=== PATIENT | female | born 1955 | race Caucasian/White ===

== ENCOUNTER 2024-03-14 04:50 | Emergency (ER) | payer BC, MEDICARE ==
[~2024-03-14] VITALS: Ht 185.4 cm; Wt 80.5 kg
[~2024-03-14 04:50] MED LIST: ALBU17AE26 IH; IBUP200C5 PO; LISI20TA28 PO; PARO20TA6 PO; SIMV10TA98 PO
[2024-03-14] MEDS: acetaminophen 325mg tablet PO ONE (05:53)
[2024-03-14 06:01] LABS: BASOPHILS # (AUTO) 0.1 X10'3 (0-0.2); BASOPHILS % (AUTO) 1.2 % (0-1); EOSINOPHILS % (AUTO) 0.9 % (0-6); HEMATOCRIT 43.9 % (35.0-45.0); HEMOGLOBIN 14.7 g/dl (12.0-16.0); LYMPHOCYTES # (AUTO) 0.6 X10'3 (1.1-4.8); LYMPHOCYTES % (AUTO) 11.4 % (21-51); MEAN CORPUSCULAR HEMOGLOBIN 30.5 PG (27.0-31.0); MEAN CORPUSCULAR HGB CONC 33.6 g/dL (33.0-36.5); MEAN CORPUSCULAR VOLUME 90.8 FL (78-98); MEAN PLATELET VOLUME 9.5 FL (7.4-10.4); MONOCYTES # (AUTO) 0.5 X10'3 (0-0.9); MONOCYTES % (AUTO) 9.6 % (2-12); NEUTROPHILS # (AUTO) 3.9 X10'3 (1.8-7.7); NEUTROPHILS % (AUTO) 76.9 % (42-75); PLATELET COUNT 176 X10'3 (140-440); RED BLOOD COUNT 4.84 X10'6 (4.20-5.60); RED CELL DISTRIBUTION WIDTH 13.8 % (11.5-14.5); WHITE BLOOD COUNT 5.1 X10'3 (4.5-11.0)
[2024-03-14 06:14] LABS: ALANINE AMINOTRANSFERASE 20 U/L (12-78); ALBUMIN 3.9 G/DL (3.4-5.0); ALBUMIN/GLOBULIN RATIO 1.2 (1.1-1.5); ALKALINE PHOSPHATASE 83 IU/L (46-116); ANION GAP 9 (8-16); ASPARTATE AMINO TRANSFERASE 44 U/L (10-37); BILIRUBIN,TOTAL 1.5 MG/DL (0.1-1.0); BLOOD UREA NITROGEN 20 MG/DL (7-18); BUN/CREATININE RATIO 28.6 (10.0-20.0); CALCIUM 9.1 MG/DL (8.5-10.1); CHLORIDE 104 MMOL/L (99-107); GLUCOSE 92 MG/DL (70-104); POTASSIUM 3.5 MMOL/L (3.5-5.1); SODIUM 141 MMOL/L (135-145); TOTAL CARBON DIOXIDE 27.9 MMOL/L (24-32); TOTAL PROTEIN 7.2 G/DL (6.4-8.2); eCRCL 89 ML/MIN; eGFR 83 ML/MIN
[2024-03-14 06:23] LABS: PRO BRAIN NATRIURETIC PEPTIDE 5042 PG/ML (0-125)
[2024-03-14 08:28] VITALS: BP 176/110; PULSE 90; RESP 20; O2SAT 94
== END 2024-03-14 08:35 | disposition home or self-care (01) ==
LOC: ER 04:50
DX: J06.9 Acute upper respiratory infection, unspecified (principal); R06.02 Shortness of breath; R05.9 Cough, unspecified; M79.10 Myalgia, unspecified site; Z20.822 Contact with and (suspected) exposure to COVID-19
CPT/HCPCS: 36415; 71045; 80053; 83880; 84145; 84484; 85025; 87811; 93005; 99285

== ENCOUNTER 2024-03-21 21:12 | Inpatient (IN) | payer MEDICARE ==
[~2024-03-21] VITALS: Ht 185.4 cm; Wt 87.5 kg
[2024-03-21 21:33] LABS: BASOPHILS # (AUTO) 0.1 X10'3 (0-0.2); BASOPHILS % (AUTO) 0.9 % (0-1); EOSINOPHILS # (AUTO) 0.1 X10'3 (0-0.9); EOSINOPHILS % (AUTO) 2.2 % (0-6); HEMATOCRIT 42.5 % (35.0-45.0); HEMOGLOBIN 13.9 g/dl (12.0-16.0); LYMPHOCYTES % (AUTO) 16.4 % (21-51); MEAN CORPUSCULAR HEMOGLOBIN 30.6 PG (27.0-31.0); MEAN CORPUSCULAR HGB CONC 32.7 g/dL (33.0-36.5); MEAN CORPUSCULAR VOLUME 93.7 FL (78-98); MEAN PLATELET VOLUME 9.3 FL (7.4-10.4); MONOCYTES # (AUTO) 0.7 X10'3 (0-0.9); MONOCYTES % (AUTO) 10.6 % (2-12); NEUTROPHILS # (AUTO) 4.4 X10'3 (1.8-7.7); NEUTROPHILS % (AUTO) 69.9 % (42-75); PLATELET COUNT 198 X10'3 (140-440); RED BLOOD COUNT 4.54 X10'6 (4.20-5.60); RED CELL DISTRIBUTION WIDTH 14.9 % (11.5-14.5); WHITE BLOOD COUNT 6.3 X10'3 (4.5-11.0)
[2024-03-21 21:43] LABS: ALANINE AMINOTRANSFERASE 27 U/L (12-78); ALBUMIN 3.8 G/DL (3.4-5.0); ALBUMIN/GLOBULIN RATIO 1.2 (1.1-1.5); ALKALINE PHOSPHATASE 80 IU/L (46-116); ANION GAP 10 (8-16); ASPARTATE AMINO TRANSFERASE 39 U/L (10-37); BILIRUBIN,TOTAL 0.4 MG/DL (0.1-1.0); BLOOD UREA NITROGEN 21 MG/DL (7-18); BUN/CREATININE RATIO 23.3 (10.0-20.0); CALCIUM 8.7 MG/DL (8.5-10.1); CHLORIDE 107 MMOL/L (99-107); GLUCOSE 91 MG/DL (70-104); POTASSIUM 4.2 MMOL/L (3.5-5.1); SODIUM 146 MMOL/L (135-145); TOTAL CARBON DIOXIDE 28.7 MMOL/L (24-32); TOTAL PROTEIN 6.9 G/DL (6.4-8.2); eCRCL 69 ML/MIN; eGFR 62 ML/MIN
[2024-03-21] MEDS: ipratropium/albuterol 3ml nebule NEB ONE (21:43)
[2024-03-21 21:44] VITALS: PULSE 91; RESP 24; O2SAT 94
[2024-03-21 21:51] VITALS: PULSE 93; RESP 19
[2024-03-21 21:51] LABS: PRO BRAIN NATRIURETIC PEPTIDE 4617 PG/ML (0-125)
[2024-03-21] MEDS: methylPREDNISolone sod succ 125mg/2ml vial IV ONE (22:05)
[2024-03-21] MEDS ORDERED: magnesium sulf-water 4G/100mL 100 ML IV PRN (23:40)
[2024-03-21] MEDS ORDERED: magnesium Cl slow-release 64mg tablet PO PRN (23:40)
[2024-03-21] MEDS ORDERED: ondansetron/PF 4mg/2ml inj IV PRN (23:40)
[2024-03-21] MEDS ORDERED: mag hydrox/Alum hydrox/simeth 30ml oral suspension PO PRN (23:40)
[2024-03-21] MEDS ORDERED: magnesium sulf-water 2g/50mL 50 ML IV PRN (23:40)
[2024-03-21] MEDS ORDERED: potassium Cl 40MEQ/1/2NS 520ml 520 ML IV PRN (23:40)
[2024-03-21] MEDS ORDERED: acetaminophen 325mg tablet PO PRN (23:40)
[2024-03-21] MEDS ORDERED: potassium Cl 20 mEq SR tablet PO PRN ×2 (23:40)
[2024-03-21] MEDS ORDERED: magnesium hydroxide 30ml (MOM) UD suspension PO PRN (23:40)
[2024-03-21] MEDS ORDERED: albuterol 2.5 MG/3 ML nebule NEB PRN (23:45)
[2024-03-22] VITALS (18 sets, daily range): BP systolic 145–183; BP diastolic 79–96; PULSE 68–125; RESP 16–24; TEMP 96.1–97.8; O2SAT 91–98
[2024-03-22] MEDS: methylPREDNISolone sod succ 125mg/2ml vial IV ONE (00:33)
[2024-03-22] MEDS: CefTRIAXone/D5W-Rocephin 1gm 50 ML IV SCH (00:54)
[2024-03-22] MEDS: azithromycin 250mg tablet PO SCH (00:54)
[2024-03-22] MEDS: hydrALAZINE 20mg/ml inj. IV PRN (02:57)
[2024-03-22 03:01] LABS: BASOPHILS % (AUTO) 0.5 % (0-1); EOSINOPHILS % (AUTO) 0.3 % (0-6); HEMATOCRIT 40.7 % (35.0-45.0); HEMOGLOBIN 13.4 g/dl (12.0-16.0); LYMPHOCYTES # (AUTO) 0.3 X10'3 (1.1-4.8); LYMPHOCYTES % (AUTO) 5.3 % (21-51); MEAN CORPUSCULAR HEMOGLOBIN 30.4 PG (27.0-31.0); MEAN CORPUSCULAR HGB CONC 32.9 g/dL (33.0-36.5); MEAN CORPUSCULAR VOLUME 92.6 FL (78-98); MONOCYTES # (AUTO) 0.1 X10'3 (0-0.9); MONOCYTES % (AUTO) 1.9 % (2-12); NEUTROPHILS # (AUTO) 4.4 X10'3 (1.8-7.7); PLATELET COUNT 160 X10'3 (140-440); RED CELL DISTRIBUTION WIDTH 14.6 % (11.5-14.5); WHITE BLOOD COUNT 4.8 X10'3 (4.5-11.0)
[2024-03-22 03:07] LABS: ALBUMIN 3.8 G/DL (3.4-5.0); ANION GAP 5 (8-16); BLOOD UREA NITROGEN 24 MG/DL (7-18); BUN/CREATININE RATIO 35.3 (10.0-20.0); CALCIUM 8.6 MG/DL (8.5-10.1); CHLORIDE 107 MMOL/L (99-107); CREATININE 0.68 MG/DL (0.40-0.90); GLUCOSE 153 MG/DL (70-104); POTASSIUM 4.3 MMOL/L (3.5-5.1); SODIUM 140 MMOL/L (135-145); TOTAL CARBON DIOXIDE 28.3 MMOL/L (24-32); eCRCL 92 ML/MIN; eGFR 86 ML/MIN
[2024-03-22] MEDS ORDERED: PARO-141 PO (04:34)
[2024-03-22] MEDS: K and/or MAG REPLACEMENT MC SCH (06:44)
[2024-03-22] MEDS: methylPREDNISolone sod succ/PF 40mg inj. IV SCH (07:33)
[2024-03-22] MEDS: docusate sod 100mg capsule PO SCH (07:33)
[2024-03-22] MEDS: apixaban 5mg tablet PO SCH (07:33)
[2024-03-22] MEDS: lisinopril 20mg tablet PO SCH (07:33)
[2024-03-22] MEDS: ipratropium/albuterol 3ml nebule NEB SCH (07:51)
[2024-03-22] MEDS ORDERED: non-formulary drug (Albuterol 2 PUFFS) IH PRN (11:05)
[2024-03-22] MEDS: furosemide 20 MG/2 ML vial IV SCH (12:07)
[2024-03-22] MEDS: carVEDilol 3.125mg tablet PO SCH (19:46)
[2024-03-22] MEDS: simvastatin 20mg tablet PO SCH (19:50)
[2024-03-22 19:56] LABS: BILIRUBIN,URINE NEGATIVE (Neg); CLARITY,URINE TURBID (Clear); COLOR,URINE YELLOW (Yellow); GLUCOSE, URINE NEGATIVE (Neg); KETONES,URINE NEGATIVE (Neg); LEUKOCYTE ESTERASE ,URINE NEGATIVE (Neg); NITRITES, URINE NEGATIVE (Neg); OCCULT BLOOD,URINE NEGATIVE (Neg); PROTEIN,URINE 30 mg/dl (Neg); UROBILINOGEN,URINE 0.2 E.U/dL (0.2-1.0)
[2024-03-22 20:08] LABS: UA COLLECTION TYPE NON-SPECIFIED
[2024-03-22 20:13] LABS: RBC,URINE 0-2 /HPF (0-2); WBC,URINE 0-4 /HPF (0-4)
[2024-03-22 20:14] LABS: AMORPHOUS URATES 4+; BACTERIA,URINE FEW /HPF (Neg); FINE GRANULAR CAST 0-3 /LPF (NEGATIVE); MUCUS STRANDS FEW /LPF (Neg); RENAL CELLS, URINE FEW /HPF; SQUAMOUS EPITHELIAL CELL,UR FEW /LPF (FEW)
[2024-03-22] MEDS: nicotine 14mg patch - 24hr TD SCH (22:00)
[2024-03-23] VITALS (18 sets, daily range): BP systolic 129–142; BP diastolic 71–92; PULSE 63–91; RESP 14–20; TEMP 97–98.1; O2SAT 88–98
[2024-03-23 07:54] LABS: BASOPHILS % (AUTO) 0.1 % (0-1); EOSINOPHILS % (AUTO) 0 % (0-6); HEMATOCRIT 41.1 % (35.0-45.0); HEMOGLOBIN 13.5 g/dl (12.0-16.0); LYMPHOCYTES # (AUTO) 0.5 X10'3 (1.1-4.8); LYMPHOCYTES % (AUTO) 5.7 % (21-51); MEAN CORPUSCULAR HEMOGLOBIN 30.4 PG (27.0-31.0); MEAN CORPUSCULAR HGB CONC 32.9 g/dL (33.0-36.5); MEAN CORPUSCULAR VOLUME 92.4 FL (78-98); MEAN PLATELET VOLUME 9.5 FL (7.4-10.4); MONOCYTES # (AUTO) 0.6 X10'3 (0-0.9); MONOCYTES % (AUTO) 6.4 % (2-12); NEUTROPHILS # (AUTO) 7.8 X10'3 (1.8-7.7); NEUTROPHILS % (AUTO) 87.8 % (42-75); PLATELET COUNT 189 X10'3 (140-440); RED BLOOD COUNT 4.45 X10'6 (4.20-5.60); RED CELL DISTRIBUTION WIDTH 14.8 % (11.5-14.5); WHITE BLOOD COUNT 8.9 X10'3 (4.5-11.0)
[2024-03-23] MEDS: PARoxetine 20mg tablet PO SCH (08:19)
[2024-03-23 08:20] LABS: ALBUMIN 3.7 G/DL (3.4-5.0); ANION GAP 9 (8-16); BLOOD UREA NITROGEN 24 MG/DL (7-18); BUN/CREATININE RATIO 24.5 (10.0-20.0); CALCIUM 8.8 MG/DL (8.5-10.1); CHLORIDE 102 MMOL/L (99-107); CREATININE 0.98 MG/DL (0.40-0.90); GLUCOSE 105 MG/DL (70-104); MAGNESIUM 1.9 MG/DL (1.5-2.4); SODIUM 142 MMOL/L (135-145); eCRCL 64 ML/MIN; eGFR 56 ML/MIN
[2024-03-23] MEDS: lisinopril 20mg tablet PO SCH (08:20)
[2024-03-23] MEDS ORDERED: iohexol 350MG/ML 100ml bottle IV ONE (11:32)
[2024-03-23] MEDS ORDERED: diatr meglu/diatrizoate 30ml oral sol.-(3 dose) bottle PO SCH (12:00)
[2024-03-23 16:45] LABS: LIPASE 30 U/L (16-77)
[2024-03-23] MEDS: diatr meglu/diatrizoate 30ml oral sol.-(3 dose) bottle PO SCH (20:51)
[2024-03-23] MEDS: Melatonin 3mg tablet PO SCH (22:43)
[2024-03-24 03:17] VITALS: PULSE 65; RESP 16; O2SAT 95
[2024-03-24 03:24] VITALS: PULSE 64; RESP 16
[2024-03-24 06:00] VITALS: BP 130/70; PULSE 60; RESP 18; TEMP 97.6; O2SAT 93
[2024-03-24 07:06] VITALS: PULSE 75; RESP 18; O2SAT 95
[2024-03-24 08:00] VITALS: RESP 18; O2SAT 93
[2024-03-24 08:42] LABS: BASOPHILS % (AUTO) 0.2 % (0-1); EOSINOPHILS % (AUTO) 0 % (0-6); HEMATOCRIT 39.3 % (35.0-45.0); HEMOGLOBIN 13.3 g/dl (12.0-16.0); LYMPHOCYTES # (AUTO) 0.6 X10'3 (1.1-4.8); LYMPHOCYTES % (AUTO) 7.6 % (21-51); MEAN CORPUSCULAR HEMOGLOBIN 31.3 PG (27.0-31.0); MEAN CORPUSCULAR HGB CONC 33.8 g/dL (33.0-36.5); MEAN CORPUSCULAR VOLUME 92.5 FL (78-98); MEAN PLATELET VOLUME 9.8 FL (7.4-10.4); MONOCYTES # (AUTO) 0.5 X10'3 (0-0.9); MONOCYTES % (AUTO) 5.8 % (2-12); NEUTROPHILS # (AUTO) 6.8 X10'3 (1.8-7.7); NEUTROPHILS % (AUTO) 86.4 % (42-75); PLATELET COUNT 187 X10'3 (140-440); RED BLOOD COUNT 4.25 X10'6 (4.20-5.60); WHITE BLOOD COUNT 7.9 X10'3 (4.5-11.0)
[2024-03-24 08:52] LABS: ALBUMIN 3.5 G/DL (3.4-5.0); ANION GAP 8 (8-16); BLOOD UREA NITROGEN 33 MG/DL (7-18); BUN/CREATININE RATIO 33.7 (10.0-20.0); CALCIUM 8.4 MG/DL (8.5-10.1); CHLORIDE 101 MMOL/L (99-107); CREATININE 0.98 MG/DL (0.40-0.90); GLUCOSE 132 MG/DL (70-104); POTASSIUM 4.3 MMOL/L (3.5-5.1); SODIUM 141 MMOL/L (135-145); TOTAL CARBON DIOXIDE 32.5 MMOL/L (24-32); eCRCL 64 ML/MIN; eGFR 56 ML/MIN
[2024-03-24 10:00] VITALS: BP 120/86; PULSE 71; RESP 16; TEMP 97.8; O2SAT 93
[2024-03-24] MEDS ORDERED: iohexol 300mg/ml 100ml inj. ONE (11:21)
[2024-03-24] MEDS ORDERED: BUDE10.2 INH (12:05)
[2024-03-24] MEDS ORDERED: APIX5TAB3 PO (12:05)
[2024-03-24] MEDS ORDERED: FURO-150 PO (12:05)
[2024-03-24] MEDS ORDERED: MAGN24002 PO (12:05)
[2024-03-24] MEDS ORDERED: Melatonin 3mg tablet PO SCH (21:00)
== END 2024-03-24 15:15 | disposition home or self-care (01) | DRG 291 ==
LOC: ER 21:13 → ED HOLD 23:42 → UNDOADMIN 23:45 → ED HOLD 03-22 01:26 → UNDOADMIN 03-22 01:26 → ED HOLD 03-22 03:38 → ORTHO 4S 03-22 03:38
PROVIDERS: ADMIT Internal Medicine Pulmonary Disease; ATTEND Internal Medicine
PROC: BW241ZZ Computerized Tomography (CT Scan) of Chest and Abdomen using Low Osmolar Contrast (ICD-10-PCS; principal; 2024-03-22)
PROC: B32T1ZZ Computerized Tomography (CT Scan) of Left Pulmonary Artery using Low Osmolar Contrast (ICD-10-PCS; 2024-03-23)
PROC: B3201ZZ Computerized Tomography (CT Scan) of Thoracic Aorta using Low Osmolar Contrast (ICD-10-PCS; 2024-03-23)
PROC: B32S1ZZ Computerized Tomography (CT Scan) of Right Pulmonary Artery using Low Osmolar Contrast (ICD-10-PCS; 2024-03-23)
PROC: BW241ZZ Computerized Tomography (CT Scan) of Chest and Abdomen using Low Osmolar Contrast (ICD-10-PCS; 2024-03-24)
DX: I11.0 Hypertensive heart disease with heart failure (principal); I50.23 Acute on chronic systolic (congestive) heart failure; J96.01 Acute respiratory failure with hypoxia; I48.91 Unspecified atrial fibrillation; F10.20 Alcohol dependence, uncomplicated; I27.81 Cor pulmonale (chronic); J43.9 Emphysema, unspecified; C76.2 Malignant neoplasm of abdomen; R91.1 Solitary pulmonary nodule; Z20.822 Contact with and (suspected) exposure to COVID-19
CPT/HCPCS: 36415; 71045; 71250; 71275; 74177; 80048; 80053; 81001; 83690; 83735; 83880; 84145; 84484; 85025; 87081; 87811; 93005; 93306; 94640; 94760; 96374; 99285; A4615; A6258; G0378; J0360; J0696; J1940; J2919; Q9963; Q9967

== ENCOUNTER 2024-04-28 05:54 | Inpatient (IN) | payer MEDICARE, SELFPAY ==
[2024-04-26 10:49] LABS: BASOPHILS % (AUTO) 0.7 % (0-1); EOSINOPHILS # (AUTO) 0.1 X10'3 (0-0.9); LYMPHOCYTES # (AUTO) 0.6 X10'3 (1.1-4.8); LYMPHOCYTES % (AUTO) 11.4 % (21-51); MEAN CORPUSCULAR HGB CONC 32.3 g/dL (33.0-36.5); MEAN CORPUSCULAR VOLUME 95.8 FL (78-98); MEAN PLATELET VOLUME 8.3 FL (7.4-10.4); MONOCYTES # (AUTO) 0.5 X10'3 (0-0.9); MONOCYTES % (AUTO) 8.4 % (2-12); NEUTROPHILS # (AUTO) 4.5 X10'3 (1.8-7.7); NEUTROPHILS % (AUTO) 78.5 % (42-75); PRE OP HEMATOCRIT 43.6 % (35.0-45.0); PRE OP HEMOGLOBIN 14.1 g/dL (12.0-16.0); PRE OP PLATELET COUNT 187 X10'3 (140-440); PRE OP WHITE BLOOD COUNT 5.7 10'3 (4.8-10.8); RED BLOOD COUNT 4.55 X10'6 (4.20-5.60); RED CELL DISTRIBUTION WIDTH 17.7 % (11.5-14.5)
[2024-04-26 11:07] LABS: PRE OP INR 1.1 INR; PRE OP PROTIME 11.9 SECONDS (9.0-12.0)
[2024-04-26 11:09] LABS: ALBUMIN 4.1 G/DL (3.4-5.0); ALBUMIN/GLOBULIN RATIO 1.4 (1.1-1.5); ALKALINE PHOSPHATASE 112 IU/L (46-116); BLOOD UREA NITROGEN 24 MG/DL (7-18); CALCIUM 8.9 MG/DL (8.5-10.1); CHLORIDE 105 MMOL/L (99-107); CREATININE 0.89 MG/DL (0.40-0.90); PRE OP ALT 35 U/L (30-65); PRE OP ANION GAP 9 (8-16); PRE OP AST 51 U/L (10-37); PRE OP BILIRUB, TOTAL 1.5 MG/DL (0.0-1.0); PRE OP GLUCOSE 97 MG/DL (70-104); PRE OP POTASSIUM 4.5 MMOL/L (3.4-5.1); PRE OP SODIUM 142 MMOL/L (135-145); TOTAL CARBON DIOXIDE 28.5 MMOL/L (24-32); TOTAL PROTEIN 7.1 G/DL (6.4-8.2); eGFR 63 ML/MIN
[2024-04-26 12:02] LABS: BILIRUBIN,URINE SMALL (Neg); COLOR,URINE YELLOW (Yellow); GLUCOSE, URINE NEGATIVE (Neg); KETONES,URINE TRACE mg/dl (Neg); LEUKOCYTE ESTERASE ,URINE NEGATIVE (Neg); NITRITES, URINE NEGATIVE (Neg); OCCULT BLOOD,URINE NEGATIVE (Neg); PROTEIN,URINE >=300 mg/dl (Neg)
[2024-04-26 12:05] LABS: CLARITY,URINE CLOUDY (Clear); UA COLLECTION TYPE CLN CATCH MIDSTREAM
[2024-04-26 12:06] LABS: SQUAMOUS EPITHELIAL CELL,UR MANY /LPF (FEW)
[2024-04-26 12:07] LABS: AMORPHOUS URATES 1+; BACTERIA,URINE 1+ /HPF (Neg); MUCUS STRANDS FEW /LPF (Neg); WBC,URINE 0-4 /HPF (0-4)
[2024-04-28] VITALS (24 sets, daily range): BP systolic 138–162; BP diastolic 60–114; PULSE 66–104; RESP 12–19; TEMP 97.1–98.3; O2SAT 90–99
[~2024-04-28] VITALS: Ht 185.4 cm; Wt 85.3 kg
[2024-04-28] MEDS: cefazolin 2gm/D5W 100mL 100 ML IV ONE (05:30)
[~2024-04-28 05:54] MED LIST changes: -ALBU17AE26 IH; +ALBU8HFA INH; +APIX5TAB3 PO; +FURO-150 PO; +IBUP-2697 PO; -IBUP200C5 PO; +PARO-141 PO; -PARO20TA6 PO; +albuterol 2.5 MG/3 ML nebule NEB PRN
[2024-04-28] MEDS: ringers solution, lacted 1,000 ML IV SCH (07:12)
[2024-04-28] MEDS: famotidine 20mg tablet PO ONE (07:12)
[2024-04-28] MEDS: ipratropium/albuterol 3ml nebule NEB PRN (08:15)
[2024-04-28] MEDS ORDERED: meperidine/PF 25mg/ml syringe IV PRN ×2 (08:20)
[2024-04-28] MEDS ORDERED: morphine 2 MG/ML inj. syringe IV PRN (08:20)
[2024-04-28] MEDS ORDERED: proCHLORperazine 10 MG/2 ml inj IV PRN (08:20)
[2024-04-28] MEDS ORDERED: enalaprilat dihydrate 2.5mg/2ml vial IV PRN (08:20)
[2024-04-28] MEDS ORDERED: ringers solution, lacted 1,000 ML IV SCH (08:20)
[2024-04-28] MEDS ORDERED: ondansetron/PF 4mg/2ml inj IV PRN (08:20)
[2024-04-28] MEDS ORDERED: labetalol 20mg/4ml (5mg/ml) syringe IV PRN (08:20)
[2024-04-28] MEDS ORDERED: morphine 4 MG/ML inj SYRINge IV PRN (08:20)
[2024-04-28] MEDS ORDERED: sevoflurane 250ml liquid IH ONE (08:30)
[2024-04-28] MEDS ORDERED: midazolam 1 mg/ML 2ml injection ONE (08:31)
[2024-04-28] MEDS ORDERED: fentaNYL /PF 50mcg/ml 5ml ampule ONE (08:31)
[2024-04-28] MEDS ORDERED: LIDOcaine 2% (20mg/ml) 5ml vial ONE (08:35)
[2024-04-28] MEDS ORDERED: propofol inj 20 ML IV ONE (08:35)
[2024-04-28] MEDS ORDERED: methylPREDNISolone sod succ 125mg/2ml vial ONE (08:35)
[2024-04-28] MEDS ORDERED: rocuronium 10mg/ml inj IV ONE ×2 (08:36→09:36)
[2024-04-28] MEDS: BUPIVAcaine 2.5mg/ml inj 50ml vial (contains preservative) ONE (08:37)
[2024-04-28] MEDS: BUPIVACAINE liposomal/PF 13.3 MG/ML vial IM ONE (08:37)
[2024-04-28] MEDS ORDERED: acetaminophen 1,000mg/100ml IV 100 ML IV ONE (11:38)
[2024-04-28] MEDS: meperidine/PF 25mg/ml syringe IV PRN (12:57)
[2024-04-28] MEDS ORDERED: naloxone 0.4 mg/ml inj IV PRN (13:25)
[2024-04-28] MEDS: ceFAZolin/D5W- 1GM premix 50 ML IV ONE (13:33)
[2024-04-28] MEDS ORDERED: non-formulary drug (albuterol inhaler (Pro-Air Inhaler) 2 PUFFS) INH PRN (13:50)
[2024-04-28] MEDS: HYDROmorphone inj. 0.5 MG/0.5 ML DISP.SYRIN IV PRN (14:49)
[2024-04-28] MEDS: ceFAZolin inj. 1,000 MG in dextrose 5%-water 50ml 50 ML IV ONE (16:24)
[2024-04-28] MEDS: HYDROcodone/acetaminophen 5mg/325mg tablet PO PRN (16:53)
[2024-04-28] MEDS: potassium CL 20mEq in D5-1/2NS 1,000 ML IV SCH (17:46)
[2024-04-28] MEDS: PARoxetine 20mg tablet PO SCH (20:34)
[2024-04-29] MEDS: ondansetron/PF 4mg/2ml inj IV PRN (04:14)
[2024-04-29 06:00] VITALS: BP 126/70; PULSE 73; RESP 20; TEMP 98.6; O2SAT 88
[2024-04-29 08:00] VITALS: RESP 20; O2SAT 88
[2024-04-29 10:00] VITALS: BP 118/63; PULSE 78; RESP 24; TEMP 98.1; O2SAT 89
[2024-04-29] MEDS: HYDROmorphone 1 mg/ml syringe IV PRN (11:32)
[2024-04-29] MEDS: ketorolac trometh 30MG/ML vial 30 MG/ML VIAL IV PRN (15:27)
[2024-04-29] MEDS: gabapentin 100mg capsule PO SCH (15:28)
[2024-04-29 18:00] VITALS: BP 107/65; PULSE 82; RESP 18; TEMP 97; O2SAT 91
[2024-04-29] MEDS: HYDROcodone/acetaminophen 10/325mg tab PO PRN (19:00)
[2024-04-29 20:00] VITALS: RESP 18; O2SAT 91
[2024-04-29 22:00] VITALS: BP 132/70; PULSE 72; RESP 16; TEMP 97; O2SAT 94
[2024-04-30] VITALS (11 sets, daily range): BP systolic 114–120; BP diastolic 62–73; PULSE 77–134; RESP 15–18; TEMP 97.4–99.6; O2SAT 88–99
[2024-04-30] MEDS: ringers solution, lacted 1,000 ML IV ONE (04:02)
[2024-04-30] MEDS: albuterol 2.5 MG/3 ML nebule NEB PRN (04:28)
[2024-04-30 06:56] LABS: BASOPHILS % (AUTO) 0.1 % (0-1); EOSINOPHILS % (AUTO) 0.1 % (0-6); HEMATOCRIT 40.1 % (35.0-45.0); LYMPHOCYTES # (AUTO) 0.4 X10'3 (1.1-4.8); LYMPHOCYTES % (AUTO) 3.8 % (21-51); MEAN CORPUSCULAR HEMOGLOBIN 31.2 PG (27.0-31.0); MEAN CORPUSCULAR HGB CONC 32.5 g/dL (33.0-36.5); MEAN PLATELET VOLUME 8.7 FL (7.4-10.4); MONOCYTES # (AUTO) 0.9 X10'3 (0-0.9); MONOCYTES % (AUTO) 7.7 % (2-12); NEUTROPHILS # (AUTO) 10.4 X10'3 (1.8-7.7); NEUTROPHILS % (AUTO) 88.3 % (42-75); PLATELET COUNT 196 X10'3 (140-440); RED BLOOD COUNT 4.17 X10'6 (4.20-5.60); WHITE BLOOD COUNT 11.8 X10'3 (4.5-11.0)
[2024-04-30 08:33] LABS: ALBUMIN 2.7 G/DL (3.4-5.0); ANION GAP 5 (8-16); BLOOD UREA NITROGEN 39 MG/DL (7-18); BUN/CREATININE RATIO 15.4 (10.0-20.0); CALCIUM 8.1 MG/DL (8.5-10.1); CHLORIDE 101 MMOL/L (99-107); CREATININE 2.53 MG/DL (0.40-0.90); GLUCOSE 80 MG/DL (70-104); SODIUM 133 MMOL/L (135-145); TOTAL CARBON DIOXIDE 27.2 MMOL/L (24-32); eCRCL 25 ML/MIN; eGFR 19 ML/MIN
[2024-04-30 08:43] LABS: POTASSIUM 5.6 MMOL/L (3.5-5.1)
[2024-04-30] MEDS: dextrose 5%-1/2 normal saline 1,000 ML IV SCH (13:14)
[2024-04-30] MEDS: metoclopramide 5 mg/ml inj IV SCH (13:15)
[2024-04-30] MEDS: albuterol 2.5 MG/3 ML nebule CONTNEB STA (14:43)
[2024-04-30 15:37] LABS: ALBUMIN 2.7 G/DL (3.4-5.0); ANION GAP 5 (8-16); BLOOD UREA NITROGEN 38 MG/DL (7-18); BUN/CREATININE RATIO 15.6 (10.0-20.0); CALCIUM 7.9 MG/DL (8.5-10.1); CHLORIDE 101 MMOL/L (99-107); CREATININE 2.44 MG/DL (0.40-0.90); GLUCOSE 91 MG/DL (70-104); MAGNESIUM 1.8 MG/DL (1.5-2.4); PHOSPHORUS 4.3 MG/DL (2.3-4.5); POTASSIUM 5.8 MMOL/L (3.5-5.1); SODIUM 132 MMOL/L (135-145); TOTAL CARBON DIOXIDE 26.4 MMOL/L (24-32); eCRCL 26 ML/MIN; eGFR 20 ML/MIN
[2024-04-30] MEDS: furosemide 20 MG/2 ML vial IV ONE (15:42)
[2024-04-30] MEDS: heparin, porcine 5000 units/ml vial SQ SCH (20:24)
[2024-04-30] MEDS: insulin regular, human 10 units/0.1 ml syringe IV ONE (20:32)
[2024-04-30] MEDS: dextrose 50%-water 50ml dispensing syringe IV ONE (20:32)
[2024-05-01] VITALS (8 sets, daily range): BP systolic 107–158; BP diastolic 68–84; PULSE 70–108; RESP 13–25; TEMP 97.4–99.2; O2SAT 92–98
[2024-05-01 06:55] LABS: BASOPHILS % (AUTO) 0.1 % (0-1); EOSINOPHILS % (AUTO) 0.2 % (0-6); HEMATOCRIT 40.2 % (35.0-45.0); HEMOGLOBIN 13.2 g/dl (12.0-16.0); LYMPHOCYTES # (AUTO) 0.5 X10'3 (1.1-4.8); LYMPHOCYTES % (AUTO) 4.3 % (21-51); MEAN CORPUSCULAR HEMOGLOBIN 31.8 PG (27.0-31.0); MEAN CORPUSCULAR VOLUME 96.3 FL (78-98); MEAN PLATELET VOLUME 8.8 FL (7.4-10.4); MONOCYTES # (AUTO) 1.2 X10'3 (0-0.9); MONOCYTES % (AUTO) 9.6 % (2-12); NEUTROPHILS # (AUTO) 10.7 X10'3 (1.8-7.7); NEUTROPHILS % (AUTO) 85.8 % (42-75); PLATELET COUNT 218 X10'3 (140-440); RED BLOOD COUNT 4.17 X10'6 (4.20-5.60); RED CELL DISTRIBUTION WIDTH 18.2 % (11.5-14.5); WHITE BLOOD COUNT 12.5 X10'3 (4.5-11.0)
[2024-05-01 07:25] LABS: ALANINE AMINOTRANSFERASE 17 U/L (12-78); ALBUMIN 2.5 G/DL (3.4-5.0); ALBUMIN/GLOBULIN RATIO 0.8 (1.1-1.5); ALKALINE PHOSPHATASE 71 IU/L (46-116); ANION GAP 5 (8-16); ASPARTATE AMINO TRANSFERASE 36 U/L (10-37); BLOOD UREA NITROGEN 34 MG/DL (7-18); BUN/CREATININE RATIO 20.4 (10.0-20.0); CHLORIDE 101 MMOL/L (99-107); CREATININE 1.67 MG/DL (0.40-0.90); GLUCOSE 83 MG/DL (70-104); MAGNESIUM 1.8 MG/DL (1.5-2.4); PHOSPHORUS 3.5 MG/DL (2.3-4.5); POTASSIUM 5.1 MMOL/L (3.5-5.1); SODIUM 132 MMOL/L (135-145); TOTAL CARBON DIOXIDE 26.3 MMOL/L (24-32); TOTAL PROTEIN 5.7 G/DL (6.4-8.2); eCRCL 37 ML/MIN; eGFR 30 ML/MIN
[2024-05-01] MEDS: gabapentin 100mg capsule PO SCH (08:00)
[2024-05-01] MEDS: bisacodyl 10mg suppository rectal RC ONE (13:10)
[2024-05-01] MEDS: docusate sod 100mg capsule PO SCH (13:10)
[2024-05-01] MEDS: proCHLORperazine 25mg suppository RC PRN (20:48)
[2024-05-01] MEDS: LIDOcaine 2% Viscous 15ml cup MM PRN (23:15)
[2024-05-02] VITALS (10 sets, daily range): BP systolic 109–158; BP diastolic 67–89; PULSE 77–144; RESP 14–23; TEMP 97.5–99; O2SAT 94–98
[2024-05-02 07:23] LABS: BASOPHILS % (AUTO) 0.4 % (0-1); EOSINOPHILS % (AUTO) 0 % (0-6); HEMATOCRIT 39.9 % (35.0-45.0); HEMOGLOBIN 13.3 g/dl (12.0-16.0); LYMPHOCYTES # (AUTO) 0.3 X10'3 (1.1-4.8); LYMPHOCYTES % (AUTO) 3.4 % (21-51); MEAN CORPUSCULAR HEMOGLOBIN 31.9 PG (27.0-31.0); MEAN CORPUSCULAR HGB CONC 33.5 g/dL (33.0-36.5); MEAN CORPUSCULAR VOLUME 95.4 FL (78-98); MEAN PLATELET VOLUME 8.7 FL (7.4-10.4); MONOCYTES % (AUTO) 10.1 % (2-12); NEUTROPHILS # (AUTO) 8.1 X10'3 (1.8-7.7); NEUTROPHILS % (AUTO) 86.1 % (42-75); PLATELET COUNT 210 X10'3 (140-440); RED BLOOD COUNT 4.18 X10'6 (4.20-5.60); RED CELL DISTRIBUTION WIDTH 17.7 % (11.5-14.5); WHITE BLOOD COUNT 9.5 X10'3 (4.5-11.0)
[2024-05-02 07:43] LABS: ALANINE AMINOTRANSFERASE 15 U/L (12-78); ALBUMIN 2.3 G/DL (3.4-5.0); ALBUMIN/GLOBULIN RATIO 0.7 (1.1-1.5); ALKALINE PHOSPHATASE 74 IU/L (46-116); ANION GAP 6 (8-16); ASPARTATE AMINO TRANSFERASE 34 U/L (10-37); BILIRUBIN,TOTAL 1.2 MG/DL (0.1-1.0); BLOOD UREA NITROGEN 36 MG/DL (7-18); BUN/CREATININE RATIO 29.8 (10.0-20.0); CALCIUM 8.5 MG/DL (8.5-10.1); CHLORIDE 100 MMOL/L (99-107); CREATININE 1.21 MG/DL (0.40-0.90); GLUCOSE 109 MG/DL (70-104); PHOSPHORUS 3.7 MG/DL (2.3-4.5); POTASSIUM 4.5 MMOL/L (3.5-5.1); SODIUM 137 MMOL/L (135-145); TOTAL CARBON DIOXIDE 31.5 MMOL/L (24-32); TOTAL PROTEIN 5.5 G/DL (6.4-8.2); eCRCL 52 ML/MIN; eGFR 44 ML/MIN
[2024-05-02] MEDS: ringers solution, lacted 1,000 ML IV SCH (10:20)
[2024-05-02] MEDS: albumin (Human) 5% 250ml 250 ML IV ONE ×4 (14:32→19:42)
[2024-05-03] VITALS (9 sets, daily range): BP systolic 128–154; BP diastolic 68–84; PULSE 76–93; RESP 13–19; TEMP 97.2–97.7; O2SAT 94–99
[2024-05-03] MEDS: HYDROmorphone 1 mg/ml syringe IV STA (05:09)
[2024-05-03 06:38] LABS: BASOPHILS % (AUTO) 0.1 % (0-1); EOSINOPHILS % (AUTO) 0.6 % (0-6); HEMATOCRIT 40.8 % (35.0-45.0); HEMOGLOBIN 13.5 g/dl (12.0-16.0); LYMPHOCYTES # (AUTO) 0.3 X10'3 (1.1-4.8); LYMPHOCYTES % (AUTO) 2.9 % (21-51); MEAN CORPUSCULAR HEMOGLOBIN 31.7 PG (27.0-31.0); MEAN CORPUSCULAR HGB CONC 33.1 g/dL (33.0-36.5); MEAN CORPUSCULAR VOLUME 95.8 FL (78-98); MEAN PLATELET VOLUME 8.3 FL (7.4-10.4); MONOCYTES # (AUTO) 1.3 X10'3 (0-0.9); MONOCYTES % (AUTO) 14.5 % (2-12); NEUTROPHILS # (AUTO) 7.2 X10'3 (1.8-7.7); NEUTROPHILS % (AUTO) 81.9 % (42-75); PLATELET COUNT 223 X10'3 (140-440); RED BLOOD COUNT 4.26 X10'6 (4.20-5.60); RED CELL DISTRIBUTION WIDTH 18.1 % (11.5-14.5); WHITE BLOOD COUNT 8.8 X10'3 (4.5-11.0)
[2024-05-03 06:54] LABS: ALANINE AMINOTRANSFERASE 22 U/L (12-78); ALBUMIN 2.8 G/DL (3.4-5.0); ALKALINE PHOSPHATASE 72 IU/L (46-116); ANION GAP 7 (8-16); ASPARTATE AMINO TRANSFERASE 31 U/L (10-37); BILIRUBIN,TOTAL 1.9 MG/DL (0.1-1.0); BLOOD UREA NITROGEN 32 MG/DL (7-18); BUN/CREATININE RATIO 34.4 (10.0-20.0); CALCIUM 8.4 MG/DL (8.5-10.1); CHLORIDE 102 MMOL/L (99-107); CREATININE 0.93 MG/DL (0.40-0.90); GLUCOSE 100 MG/DL (70-104); PHOSPHORUS 3.6 MG/DL (2.3-4.5); POTASSIUM 4.1 MMOL/L (3.5-5.1); SODIUM 140 MMOL/L (135-145); TOTAL PROTEIN 5.7 G/DL (6.4-8.2); eCRCL 67 ML/MIN; eGFR 60 ML/MIN
[2024-05-03] MEDS ORDERED: metoclopramide 5 mg/ml inj IV PRN (10:15)
[2024-05-03] MEDS ORDERED: naloxone 0.4 mg/ml inj IV PRN (10:30)
[2024-05-03] MEDS: ringers solution, lacted 1,000 ML IV SCH (11:28)
[2024-05-03] MEDS: HYDROmorph/NS 0.2 mg/ml PCA 100 ML IV SCH (13:00)
[2024-05-03] MEDS: metoclopramide 5 mg/ml inj IV SCH (20:00)
[2024-05-04] VITALS (9 sets, daily range): BP systolic 153–166; BP diastolic 64–77; PULSE 59–96; RESP 14–19; TEMP 97.5–98.7; O2SAT 92–100
[2024-05-04 07:08] LABS: BASOPHILS % (AUTO) 0.2 % (0-1); EOSINOPHILS # (AUTO) 0.1 X10'3 (0-0.9); EOSINOPHILS % (AUTO) 1.3 % (0-6); HEMOGLOBIN 13.6 g/dl (12.0-16.0); LYMPHOCYTES # (AUTO) 0.4 X10'3 (1.1-4.8); LYMPHOCYTES % (AUTO) 5.4 % (21-51); MEAN CORPUSCULAR HEMOGLOBIN 31.9 PG (27.0-31.0); MEAN CORPUSCULAR HGB CONC 33.1 g/dL (33.0-36.5); MEAN CORPUSCULAR VOLUME 96.2 FL (78-98); MEAN PLATELET VOLUME 8.2 FL (7.4-10.4); MONOCYTES # (AUTO) 1.1 X10'3 (0-0.9); MONOCYTES % (AUTO) 15.3 % (2-12); NEUTROPHILS # (AUTO) 5.8 X10'3 (1.8-7.7); NEUTROPHILS % (AUTO) 77.8 % (42-75); PLATELET COUNT 217 X10'3 (140-440); RED BLOOD COUNT 4.26 X10'6 (4.20-5.60); WHITE BLOOD COUNT 7.4 X10'3 (4.5-11.0)
[2024-05-04 07:40] LABS: ALANINE AMINOTRANSFERASE 21 U/L (12-78); ALBUMIN 2.8 G/DL (3.4-5.0); ALBUMIN/GLOBULIN RATIO 0.8 (1.1-1.5); ALKALINE PHOSPHATASE 91 IU/L (46-116); ANION GAP 4 (8-16); ASPARTATE AMINO TRANSFERASE 30 U/L (10-37); BILIRUBIN,TOTAL 2.5 MG/DL (0.1-1.0); BLOOD UREA NITROGEN 28 MG/DL (7-18); BUN/CREATININE RATIO 30.8 (10.0-20.0); CALCIUM 8.7 MG/DL (8.5-10.1); CHLORIDE 102 MMOL/L (99-107); CREATININE 0.91 MG/DL (0.40-0.90); GLUCOSE 84 MG/DL (70-104); PHOSPHORUS 3.5 MG/DL (2.3-4.5); POTASSIUM 3.7 MMOL/L (3.5-5.1); SODIUM 143 MMOL/L (135-145); TOTAL CARBON DIOXIDE 37.4 MMOL/L (24-32); TOTAL PROTEIN 6.2 G/DL (6.4-8.2); eCRCL 68 ML/MIN; eGFR 61 ML/MIN
[2024-05-04 08:31] LABS: BANDS% (MANUAL) 1 % (0-10); EOSINOPHILS % (MANUAL) 3 % (0-6); LYMPHOCYTES % (MANUAL) 6 % (21-51); MONOCYTES % (MANUAL) 15 % (2-12); NEUTROPHILS % (MANUAL) 75 % (42-75); PLATELET ESTIMATE NORMAL
[2024-05-04 08:32] LABS: ANISOCYTOSIS 1+; ELLIPTOCYTES FEW; MICROCYTOSIS FEW
[2024-05-04 08:36] LABS: TOTAL CELLS COUNTED 100
[2024-05-04] MEDS: PCA WASTE DOCUMENTATION 1 MG ML MC SCH (23:46)
[2024-05-05] VITALS (9 sets, daily range): BP systolic 129–160; BP diastolic 60–85; PULSE 53–110; RESP 15–21; TEMP 96.9–98.3; O2SAT 93–99
[2024-05-05 07:51] LABS: BASOPHILS % (AUTO) 0.1 % (0-1); EOSINOPHILS # (AUTO) 0.1 X10'3 (0-0.9); EOSINOPHILS % (AUTO) 0.7 % (0-6); HEMATOCRIT 41.4 % (35.0-45.0); HEMOGLOBIN 13.4 g/dl (12.0-16.0); LYMPHOCYTES # (AUTO) 0.4 X10'3 (1.1-4.8); LYMPHOCYTES % (AUTO) 4.6 % (21-51); MEAN CORPUSCULAR HEMOGLOBIN 30.8 PG (27.0-31.0); MEAN CORPUSCULAR HGB CONC 32.3 g/dL (33.0-36.5); MEAN CORPUSCULAR VOLUME 95.3 FL (78-98); MEAN PLATELET VOLUME 8.1 FL (7.4-10.4); MONOCYTES # (AUTO) 0.9 X10'3 (0-0.9); MONOCYTES % (AUTO) 11.1 % (2-12); NEUTROPHILS # (AUTO) 6.8 X10'3 (1.8-7.7); NEUTROPHILS % (AUTO) 83.5 % (42-75); PLATELET COUNT 254 X10'3 (140-440); RED BLOOD COUNT 4.35 X10'6 (4.20-5.60); RED CELL DISTRIBUTION WIDTH 18.7 % (11.5-14.5); WHITE BLOOD COUNT 8.2 X10'3 (4.5-11.0)
[2024-05-05 08:07] LABS: ALANINE AMINOTRANSFERASE 16 U/L (12-78); ALBUMIN 2.5 G/DL (3.4-5.0); ALBUMIN/GLOBULIN RATIO 0.8 (1.1-1.5); ALKALINE PHOSPHATASE 95 IU/L (46-116); ANION GAP 2 (8-16); ASPARTATE AMINO TRANSFERASE 29 U/L (10-37); BILIRUBIN,TOTAL 2.2 MG/DL (0.1-1.0); BLOOD UREA NITROGEN 23 MG/DL (7-18); BUN/CREATININE RATIO 24.7 (10.0-20.0); CALCIUM 8.1 MG/DL (8.5-10.1); CHLORIDE 102 MMOL/L (99-107); CREATININE 0.93 MG/DL (0.40-0.90); GLUCOSE 107 MG/DL (70-104); PHOSPHORUS 3.6 MG/DL (2.3-4.5); POTASSIUM 3.5 MMOL/L (3.5-5.1); SODIUM 144 MMOL/L (135-145); TOTAL CARBON DIOXIDE 39.8 MMOL/L (24-32); TOTAL PROTEIN 5.8 G/DL (6.4-8.2); eCRCL 67 ML/MIN; eGFR 60 ML/MIN
[2024-05-05 09:56] LABS: ANISOCYTOSIS 2+; PLATELET ESTIMATE NORMAL
[2024-05-05 09:57] LABS: ELLIPTOCYTES FEW; TEAR DROP CELLS FEW
[2024-05-06] VITALS (7 sets, daily range): BP systolic 112–141; BP diastolic 62–77; PULSE 68–166; RESP 12–20; TEMP 97–99.3; O2SAT 92–96
[2024-05-06 08:33] LABS: BASOPHILS % (AUTO) 0.1 % (0-1); EOSINOPHILS # (AUTO) 0.1 X10'3 (0-0.9); EOSINOPHILS % (AUTO) 0.5 % (0-6); HEMATOCRIT 42.5 % (35.0-45.0); LYMPHOCYTES # (AUTO) 0.4 X10'3 (1.1-4.8); LYMPHOCYTES % (AUTO) 2.3 % (21-51); MEAN CORPUSCULAR HEMOGLOBIN 31.7 PG (27.0-31.0); MEAN CORPUSCULAR HGB CONC 32.9 g/dL (33.0-36.5); MEAN CORPUSCULAR VOLUME 96.4 FL (78-98); MEAN PLATELET VOLUME 8.6 FL (7.4-10.4); MONOCYTES # (AUTO) 1.8 X10'3 (0-0.9); MONOCYTES % (AUTO) 9.4 % (2-12); NEUTROPHILS % (AUTO) 87.7 % (42-75); PLATELET COUNT 330 X10'3 (140-440); RED BLOOD COUNT 4.41 X10'6 (4.20-5.60); RED CELL DISTRIBUTION WIDTH 17.9 % (11.5-14.5); WHITE BLOOD COUNT 19.3 X10'3 (4.5-11.0)
[2024-05-06 08:55] LABS: ALANINE AMINOTRANSFERASE 12 U/L (12-78); ALBUMIN 2.3 G/DL (3.4-5.0); ALBUMIN/GLOBULIN RATIO 0.7 (1.1-1.5); ALKALINE PHOSPHATASE 85 IU/L (46-116); ANION GAP 9 (8-16); ASPARTATE AMINO TRANSFERASE 25 U/L (10-37); BILIRUBIN,TOTAL 3.6 MG/DL (0.1-1.0); BLOOD UREA NITROGEN 28 MG/DL (7-18); BUN/CREATININE RATIO 15.1 (10.0-20.0); CALCIUM 7.9 MG/DL (8.5-10.1); CHLORIDE 95 MMOL/L (99-107); CREATININE 1.85 MG/DL (0.40-0.90); GLUCOSE 116 MG/DL (70-104); MAGNESIUM 1.9 MG/DL (1.5-2.4); PHOSPHORUS 4.8 MG/DL (2.3-4.5); POTASSIUM 3.8 MMOL/L (3.5-5.1); SODIUM 139 MMOL/L (135-145); TOTAL CARBON DIOXIDE 34.7 MMOL/L (24-32); TOTAL PROTEIN 5.7 G/DL (6.4-8.2); eCRCL 34 ML/MIN; eGFR 27 ML/MIN
[2024-05-06] MEDS ORDERED: HYDROcodone/acetaminophen 10/325mg tab PO PRN (11:45)
[2024-05-06] MEDS: PCA WASTE DOCUMENTATION 1 MG ML MC SCH (13:11)
[2024-05-06] MEDS: HYDROmorphone/PF 0.2 MG/ML SYRINGE IV PRN ×2 (15:19→16:30)
[2024-05-06] MEDS: piperacillin/tazo 3.375gm/50ml 50 ML IV SCH (15:40)
[2024-05-06] MEDS: diatr meglu/diatrizoate 30ml oral sol.-(3 dose) bottle PO ONE ×3 (16:13→20:00)
[2024-05-06] MEDS ORDERED: Neutra Phos packet PO PRN (16:25)
[2024-05-06] MEDS ORDERED: magnesium sulf-water 2g/50mL 50 ML IV PRN (16:25)
[2024-05-06] MEDS ORDERED: magnesium sulf-water 4G/100mL 100 ML IV PRN (16:25)
[2024-05-06] MEDS ORDERED: magnesium Cl slow-release 64mg tablet PO PRN (16:25)
[2024-05-06] MEDS ORDERED: potassium Cl 40MEQ/1/2NS 520ml 520 ML IV PRN (16:25)
[2024-05-06] MEDS ORDERED: sodium phosphate inj. 30 MMOL in dextrose 5%-water 250 ML IV PRN (16:25)
[2024-05-06] MEDS ORDERED: potassium Cl 20 mEq SR tablet PO PRN ×2 (16:25)
[2024-05-06] MEDS ORDERED: sodium phosphate inj. 15 MMOL in dextrose 5%-water 250 ML IV PRN (16:25)
[2024-05-06] MEDS ORDERED: Dextrose 10%-water IV solution 1,000 ML IV PRN (16:25)
[2024-05-06 17:45] LABS: ALANINE AMINOTRANSFERASE 17 U/L (12-78); ALBUMIN 2.6 G/DL (3.4-5.0); ALBUMIN/GLOBULIN RATIO 0.7 (1.1-1.5); ALKALINE PHOSPHATASE 101 IU/L (46-116); ANION GAP 12 (8-16); ASPARTATE AMINO TRANSFERASE 32 U/L (10-37); BILIRUBIN,TOTAL 4.2 MG/DL (0.1-1.0); BLOOD UREA NITROGEN 30 MG/DL (7-18); BUN/CREATININE RATIO 13.5 (10.0-20.0); CALCIUM 8.4 MG/DL (8.5-10.1); CHLORIDE 94 MMOL/L (99-107); CREATININE 2.23 MG/DL (0.40-0.90); GLUCOSE 108 MG/DL (70-104); PHOSPHORUS 5.5 MG/DL (2.3-4.5); POTASSIUM 4.3 MMOL/L (3.5-5.1); PREALBUMIN 10.3 MG/DL (19-36); SODIUM 140 MMOL/L (135-145); TOTAL CARBON DIOXIDE 34.2 MMOL/L (24-32); TOTAL PROTEIN 6.6 G/DL (6.4-8.2); TRIGLYCERIDES 122 MG/DL (20-135); eCRCL 28 ML/MIN; eGFR 22 ML/MIN
[2024-05-06] MEDS: metoprolol tartrate 1mg/ml inj IV ONE (18:21)
[2024-05-06] MEDS ORDERED: diltiazem-NS 100mg/100ml 100 ML IV SCH (18:35)
[2024-05-06] MEDS: metoprolol tartrate 1mg/ml inj IV SCH (18:51)
[2024-05-06] MEDS ORDERED: morphine 10mg/0.5ml (conc. morphine) oral syringe PO PRN (19:45)
[2024-05-06] MEDS: HYDROmorphone 1 mg/ml syringe IV ONE (19:45)
[2024-05-06] MEDS ORDERED: COPPER IV SCH (20:00)
[2024-05-06] MEDS ORDERED: MANGANESE IV SCH (20:00)
[2024-05-06] MEDS ORDERED: [UNRECOGNIZED DRUG - OTHER] IV SCH (20:00)
[2024-05-06] MEDS ORDERED: K and/or MAG REPLACEMENT MC SCH (20:00)
[2024-05-06] MEDS ORDERED: CHROMIC CHLORIDE IV SCH (20:00)
[2024-05-06] MEDS ORDERED: fat emulsion 20% inj. 100 ML IV SCH (20:00)
[2024-05-06] MEDS ORDERED: SELENIUM IV SCH (20:00)
[2024-05-06] MEDS ORDERED: ZINC IV SCH (20:00)
[2024-05-07] VITALS (7 sets, daily range): BP systolic 79–105; BP diastolic 46–64; PULSE 68–110; RESP 12–26; TEMP 96.2–97.6; O2SAT 92–95
[2024-05-07] MEDS: morphine 10mg/ml inj. IV PRN (03:17)
[2024-05-07] MEDS: LORazepam 2 mg/ml vial IV PRN (04:44)
[2024-05-07 09:21] LABS: BASOPHILS % (AUTO) 0.1 % (0-1); EOSINOPHILS # (AUTO) 0.2 X10'3 (0-0.9); EOSINOPHILS % (AUTO) 0.6 % (0-6); HEMATOCRIT 39.7 % (35.0-45.0); HEMOGLOBIN 12.9 g/dl (12.0-16.0); LYMPHOCYTES # (AUTO) 0.6 X10'3 (1.1-4.8); MEAN CORPUSCULAR HEMOGLOBIN 30.8 PG (27.0-31.0); MEAN CORPUSCULAR HGB CONC 32.4 g/dL (33.0-36.5); MEAN PLATELET VOLUME 8.5 FL (7.4-10.4); MONOCYTES # (AUTO) 2.1 X10'3 (0-0.9); MONOCYTES % (AUTO) 7.4 % (2-12); NEUTROPHILS # (AUTO) 24.8 X10'3 (1.8-7.7); NEUTROPHILS % (AUTO) 89.9 % (42-75); PLATELET COUNT 354 X10'3 (140-440); RED BLOOD COUNT 4.18 X10'6 (4.20-5.60)
[2024-05-07 09:27] LABS: WHITE BLOOD COUNT 27.6 X10'3 (4.5-11.0)
[2024-05-07 09:35] LABS: ALANINE AMINOTRANSFERASE 10 U/L (12-78); ALBUMIN 1.8 G/DL (3.4-5.0); ALBUMIN/GLOBULIN RATIO 0.5 (1.1-1.5); ALKALINE PHOSPHATASE 83 IU/L (46-116); ANION GAP 8 (8-16); ASPARTATE AMINO TRANSFERASE 30 U/L (10-37); BILIRUBIN,TOTAL 4.5 MG/DL (0.1-1.0); BLOOD UREA NITROGEN 42 MG/DL (7-18); CALCIUM 7.8 MG/DL (8.5-10.1); CHLORIDE 95 MMOL/L (99-107); CREATININE 3.22 MG/DL (0.40-0.90); GLUCOSE 94 MG/DL (70-104); MAGNESIUM 1.8 MG/DL (1.5-2.4); PHOSPHORUS 6.1 MG/DL (2.3-4.5); SODIUM 136 MMOL/L (135-145); TOTAL CARBON DIOXIDE 32.7 MMOL/L (24-32); TOTAL PROTEIN 5.3 G/DL (6.4-8.2); eCRCL 19 ML/MIN; eGFR 14 ML/MIN
[2024-05-07 09:46] LABS: ANISOCYTOSIS 1+; PLATELET ESTIMATE NORMAL; TOTAL CELLS COUNTED 100
[2024-05-08] VITALS (10 sets, daily range): BP systolic 80–144; BP diastolic 38–118; PULSE 58–142; RESP 14–26; TEMP 96.2–100.1; O2SAT 82–98
[2024-05-08] MEDS: metoclopramide 5 mg/ml inj IV ONE (03:47)
[2024-05-08] MEDS: LidoCAINE 2% Topical Jelly 11mL syringe (UROJET) TOP ONE (03:50)
[2024-05-08] MEDS: bisacodyl 10mg suppository rectal RC STA (03:53)
[2024-05-08 10:51] LABS: BASOPHILS % (AUTO) 0.1 % (0-1); EOSINOPHILS # (AUTO) 0.1 X10'3 (0-0.9); EOSINOPHILS % (AUTO) 0.4 % (0-6); HEMATOCRIT 38.9 % (35.0-45.0); HEMOGLOBIN 12.6 g/dl (12.0-16.0); LYMPHOCYTES # (AUTO) 0.5 X10'3 (1.1-4.8); LYMPHOCYTES % (AUTO) 1.5 % (21-51); MEAN CORPUSCULAR HGB CONC 32.3 g/dL (33.0-36.5); MEAN PLATELET VOLUME 8.9 FL (7.4-10.4); MONOCYTES # (AUTO) 1.8 X10'3 (0-0.9); MONOCYTES % (AUTO) 5.9 % (2-12); NEUTROPHILS # (AUTO) 28.8 X10'3 (1.8-7.7); NEUTROPHILS % (AUTO) 92.1 % (42-75); PLATELET COUNT 356 X10'3 (140-440); RED BLOOD COUNT 4.05 X10'6 (4.20-5.60); RED CELL DISTRIBUTION WIDTH 18.3 % (11.5-14.5)
[2024-05-08 10:53] LABS: WHITE BLOOD COUNT 31.2 X10'3 (4.5-11.0)
[2024-05-08] MEDS ORDERED: scopolamine 1MG/72H patch 1 PATCH PATCH.TD.3 TD SCH (11:05)
[2024-05-08 11:17] LABS: TOTAL CELLS COUNTED 100
[2024-05-08 11:18] LABS: ANISOCYTOSIS 2+; PLATELET ESTIMATE NORMAL
[2024-05-08 11:21] LABS: TOXIC GRANULATION 1+
[2024-05-08] MEDS ORDERED: normal saline 1000ml 1,000 ML IV SCH (12:40)
[2024-05-08] MEDS: piperacillin/tazo 3.375gm/50ml 50 ML IV SCH (12:42)
[2024-05-08] MEDS: vancomycin 1,750 MG in NS 350ml IV soln IV ONE (12:50)
[2024-05-08] MEDS ORDERED: dextrose 5%-lactated ringers 1,000 ML IV SCH (13:00)
[2024-05-08] MEDS: amiodarone 150mg/dext, iso-os 100 ML IV ONE (13:05)
[2024-05-08 13:53] LABS: ALANINE AMINOTRANSFERASE 27 U/L (12-78); ALBUMIN 1.6 G/DL (3.4-5.0); ALBUMIN/GLOBULIN RATIO 0.5 (1.1-1.5); ALKALINE PHOSPHATASE 86 IU/L (46-116); ASPARTATE AMINO TRANSFERASE 101 U/L (10-37); BILIRUBIN,DIRECT 3.4 MG/DL (0-0.3); BILIRUBIN,TOTAL 4.2 MG/DL (0.1-1.0); TOTAL PROTEIN 5.1 G/DL (6.4-8.2)
[2024-05-08 14:10] LABS: ABG BASE EXCESS 3.9 mmol/L (-2.0-3.0); ABG HCO3 28.8 mmol/L (21.0-28.0); ABG OXYGEN SATURATION 97.9 % (94.0-98.0); ABG PCO2 (T) 43.7 mmHg (32.0-45.0); ABG PH (T) 7.435 (7.350-7.450); ABG PO2 (T) 96.5 mmHg (83.0-108.0); ALLEN'S TEST POSITIVE; FCOHb 1.3 % (0.5-1.5); FHHb 2.1 % (0.0-5.0); FLOW 15 L/min; FMetHb 0.3 % (0.0-1.5); FO2Hb 96.3 % (94.0-98.0); MODE MASK - NRB; PATIENT TEMPERATURE 36.6; TOTAL HEMOGLOBIN 12.7 G/dl (12.0-16.0)
[2024-05-08] MEDS: amiodarone/D5 360MG/200ML BAG 200 ML IV SCH (14:27)
[2024-05-08 15:49] LABS: BASOPHILS # (AUTO) 0.2 X10'3 (0-0.2); BASOPHILS % (AUTO) 0.5 % (0-1); EOSINOPHILS # (AUTO) 0.1 X10'3 (0-0.9); EOSINOPHILS % (AUTO) 0.3 % (0-6); HEMATOCRIT 34.8 % (35.0-45.0); HEMOGLOBIN 11.1 g/dl (12.0-16.0); LYMPHOCYTES # (AUTO) 0.4 X10'3 (1.1-4.8); LYMPHOCYTES % (AUTO) 1.3 % (21-51); MEAN CORPUSCULAR HEMOGLOBIN 30.5 PG (27.0-31.0); MEAN CORPUSCULAR VOLUME 95.3 FL (78-98); MEAN PLATELET VOLUME 8.9 FL (7.4-10.4); MONOCYTES # (AUTO) 1.7 X10'3 (0-0.9); MONOCYTES % (AUTO) 5.2 % (2-12); NEUTROPHILS # (AUTO) 29.8 X10'3 (1.8-7.7); NEUTROPHILS % (AUTO) 92.7 % (42-75); PLATELET COUNT 336 X10'3 (140-440); RED BLOOD COUNT 3.65 X10'6 (4.20-5.60); RED CELL DISTRIBUTION WIDTH 18.6 % (11.5-14.5)
[2024-05-08 15:54] LABS: WHITE BLOOD COUNT 32.1 X10'3 (4.5-11.0)
[2024-05-08 16:39] LABS: ANISOCYTOSIS 2+; PLATELET ESTIMATE NORMAL; TOTAL CELLS COUNTED 100; TOXIC GRANULATION 1+; TOXIC VACUOLATION 1+
[2024-05-08 16:40] LABS: BURR CELLS FEW; ELLIPTOCYTES FEW
[2024-05-08] MEDS ORDERED: LORazepam 2 mg/ml vial IV PRN (16:50)
[2024-05-08] MEDS: morphine 10mg/ml inj. IV PRN (16:52)
[2024-05-09] MEDS ORDERED: MVI, adult No.4 with vit. K 10 ML in dextrose 5% water 500ml 500 ML IV SCH (08:00)
[2024-05-10] MEDS ORDERED: vancomycin/NS 1 GM ADD-VANTAGE 250 ML IV SCH (13:00)
[2024-05-14] MEDS ORDERED: MESSAGE TO NURSING IV ONE (12:30)
== END 2024-05-08 22:18 | DRG 356 ==
LOC: PAS IN 05:54 → SUR 3N 14:08 → PCU 3S 04-30 21:22 → CICU 2S 05-08 14:23 → SUR 3N 05-08 22:08
PROVIDERS: ADMIT Surgery; ATTEND Surgery
PROC: 07BD0ZX Excision of Aortic Lymphatic, Open Approach, Diagnostic (ICD-10-PCS; 2024-04-28)
PROC: 3E0T3BZ Introduction of Anesthetic Agent into Peripheral Nerves and Plexi, Percutaneous Approach (ICD-10-PCS; 2024-04-28)
PROC: 0WBH0ZX Excision of Retroperitoneum, Open Approach, Diagnostic (ICD-10-PCS; principal; 2024-04-28 08:00)
DX: C78.6 Secondary malignant neoplasm of retroperitoneum and peritoneum (principal); J96.00 Acute respiratory failure, unspecified whether with hypoxia or hypercapnia; N17.0 Acute kidney failure with tubular necrosis; C96.9 Malignant neoplasm of lymphoid, hematopoietic and related tissue, unspecified; I47.10 Supraventricular tachycardia, unspecified; K56.7 Ileus, unspecified; R18.8 Other ascites; C79.02 Secondary malignant neoplasm of left kidney and renal pelvis; J90 Pleural effusion, not elsewhere classified; K66.8 Other specified disorders of peritoneum; F17.210 Nicotine dependence, cigarettes, uncomplicated; D44.7 Neoplasm of uncertain behavior of aortic body and other paraganglia; I10 Essential (primary) hypertension; J44.9 Chronic obstructive pulmonary disease, unspecified; E87.5 Hyperkalemia; Z66 Do not resuscitate; I49.9 Cardiac arrhythmia, unspecified; Z51.5 Encounter for palliative care
CPT/HCPCS: 20950; 36415; 36600; 71045; 71046; 74018; 74176; 76770; 78707; 80048; 80053; 80076; 81001; 82803; 82948; 83605; 83735; 84100; 84134; 84145; 84478; 85007; 85008; 85018; 85025; 85610; 85651; 85730; 86885; 86900; 86901; 87040; 87081; 88184; 88185; 88305; 88331; 88341; 88342; 93005; 94640; 94760; 94799; A4314; A4615; A4618; A4620; A5200; A6213; A6250; A6258; A6449; A7000; A7015; A9562; C1758; C9290; G0378; J0131; J0282; J0690; J1170; J1171; J1644; J1815; J1885; J1940; J2060; J2175; J2250; J2274; J2405; J2543; J2704; J2765; J2919; J3010; J3480; J3490; J7030; J7040; J7042; J7060; J7120; J7121; P9045